=== PATIENT | male | born 1995 | race Caucasian/White ===

== ENCOUNTER → 2017-05-11 | Outpatient (REF) | payer OTHER ==
[2017-05-11 21:23] LABS: CHLAMYDIA DNA AMPLIFICATION POSITIVE (NEGATIVE); GC DNA AMPLIFICATION NEGATIVE (NEGATIVE)
== END ==
LOC: M LAB REF 16:30
DX: A74.9 Chlamydial infection, unspecified (principal)
CPT/HCPCS: 87591

== ENCOUNTER 2019-07-10 03:22 | Emergency (ER) | payer OTHER ==
[~2019-07-10] VITALS: Ht 177.8 cm; Wt 129.6 kg
[2019-07-10] MEDS ORDERED: TETANUS/DIPHTHERIA TOX ADSORB ADULT 0.5ML SYR/VIAL (90714) IM ONE (03:45)
--- NOTE | 2019-07-10 03:59 | REPVR ---
PROCEDURE INFORMATION: Exam: CT Head Without Contrast Exam date and time: 07/10/2019 3:37 AM Age: 24 years old Clinical indication: Injury or trauma; Fall; Initial encounter; Concussion / head injury; Consciousness not specified; Additional info: [facility] TECHNIQUE: Imaging protocol: Computed tomography of the head without contrast. Radiation optimization: All CT scans at this facility use at least one of these dose optimization techniques: automated exposure control; mA and/or kV adjustment per patient size (includes targeted exams where dose is matched to clinical indication); or iterative reconstruction. COMPARISON: No relevant prior studies available. FINDINGS: There are no intra-or extra-axial hemorrhages or fluid collections. There is no mass effect or midline shift. Ventricles are symmetrical and nondilated for age. Symmetric, benign-appearing calcifications in the basal ganglia bilaterally. There are no other focal parenchymal abnormalities. No calvarial fractures. IMPRESSION: No acute intracranial process. No intracranial hemorrhage. Electronically signed by: Gunnar Cr On 07/10/2019 03:58:44 AM
--- NOTE | 2019-07-10 04:01 | REPVR ---
PROCEDURE INFORMATION: Exam: CT Maxillofacial Without Contrast Exam date and time: 07/10/2019 3:37 AM Age: 24 years old Clinical indication: Injury or trauma; Fall; Initial encounter; Blunt trauma (contusions or hematomas); Cheek bone and forehead; Left; Additional info: [facility] TECHNIQUE: Imaging protocol: Computed tomography images of the face without contrast. Radiation optimization: All CT scans at this facility use at least one of these dose optimization techniques: automated exposure control; mA and/or kV adjustment per patient size (includes targeted exams where dose is matched to clinical indication); or iterative reconstruction. COMPARISON: No relevant prior studies available. FINDINGS: Mild soft tissue swelling over the left maxilla and zygoma. The globes are intact. Intra-and extra conal orbital structures are grossly normal. There is no evidence of orbital fracture. There is no evidence of displaced nasal bone fracture. Zygomatic arches are intact. Pterygoid plates are intact. Temporomandibular joints and mandible are intact. Mild inflammatory changes within right posterior ethmoid air cells. Paranasal sinuses are otherwise clear. IMPRESSION: Mild soft tissue swelling over the left maxilla and zygoma. No acute facial bone fracture. Orbital structures are grossly normal. Electronically signed by: Gunnar Cr On 07/10/2019 04:01:18 AM
[2019-07-10 04:18] VITALS: BP 137/93
== END 2019-07-10 04:49 | disposition home or self-care (01) ==
LOC: M ED 03:22
DX: S00.81XA Abrasion of other part of head, initial encounter (principal); S00.83XA Contusion of other part of head, initial encounter; W01.0XXA Fall on same level from slipping, tripping and stumbling without subsequent striking against object, initial encounter; Y92.410 Unspecified street and highway as the place of occurrence of the external cause

== ENCOUNTER → 2019-12-07 | Outpatient (REF) | payer OTHER ==
[2020-01-04 13:09] LABS: CHLAMYDIA DNA AMPLIFICATION POSITIVE (NEGATIVE); GC DNA AMPLIFICATION NEGATIVE (NEGATIVE)
== END ==
LOC: M LAB REF 10:39
PROVIDERS: ATTEND Nurse Practitioner Family
DX: N34.1 Nonspecific urethritis (principal)

== ENCOUNTER → 2020-07-25 | Outpatient (REF) | payer OTHER | LOC: M WUC 15:53 | PROVIDERS: ATTEND Physician Assistant | DX: R35.0 Frequency of micturition (principal); Z11.3 Encounter for screening for infections with a predominantly sexual mode of transmission ==